=== PATIENT | male | born 1970 | race Caucasian/White ===

== ENCOUNTER → 2019-06-07 | Outpatient (CLI) | payer OTHER ==
[2016-03-11 15:06] VITALS: BP 116/68
[~2019-06-07] MED LIST: LIDO700A4 TP
--- NOTE | 2019-06-07 14:48 | RAD ---
Ultrasound evaluation right groin 06/07/2019 INDICATION: Possible Jarrett COMPARISON STUDY: None Discussion: Ultrasound evaluation of the right inguinal region was performed. Static images are submitted to PACS. Accentuated with Valsalva maneuver there is a appears to be a small loop of either mesenteric fat or bowel consistent with a right inguinal hernia. Correlate with physical exam findings. Other small normal appearing lymph nodes appear to be present. IMPRESSION: Probable small right inguinal hernia. Correlate with physical exam findings. Electronically signed by: Fidencio Ferrer MD (06/07/2019 2:45 PM) [id number]
== END | disposition home or self-care (01) ==
LOC: US 10:20
DX: R10.9 Unspecified abdominal pain (principal)
CPT/HCPCS: 76881